=== PATIENT | male | born 1975 | race Caucasian/White ===

== ENCOUNTER 2020-11-29 19:58 | Emergency (ER) | payer OTHER ==
[~2020-11-29 19:58] MED LIST: CEFUROXIME500 MG PO; OMNICEF 300 MG300 MG PO; PYRIDIUM200 MG PO; ROCEPHIN IM/I2000 MG IV
[2020-11-29 20:35] LABS: HEMOGLOBIN 15.5 gm/dl (14.0-17.5); RED BLOOD COUNT 5.21 M/UL (4.20-5.50); WHITE BLOOD COUNT 12.8 K/UL (4.5-11.0)
[2020-11-29 21:02] LABS: BUN/CREATININE RATIO 16 (0-10)
== END 2020-11-30 01:57 | disposition home or self-care (01) ==
LOC: ER1 19:58
PROVIDERS: Physician Assistant Medical
DX: R07.89 Other chest pain (principal); R00.2 Palpitations; I10 Essential (primary) hypertension; Z20.822 Contact with and (suspected) exposure to COVID-19; Z90.89 Acquired absence of other organs
CPT/HCPCS: 71045; 80053; 82550; 82553; 83874; 84484; 85025; 85379; 93005; 99285; U0002

== ENCOUNTER → 2020-12-12 | Outpatient (CLI) | payer OTHER | LOC: HEART 5 10:46 | DX: R07.89 Other chest pain (principal) ==